=== PATIENT | female | born 2000 | race Two or more races ===

== ENCOUNTER 2022-03-22 15:47 | Outpatient (CLI) | payer OTHER | END 2022-03-22 17:32 | disposition home or self-care (01) | LOC: PRENATAL 15:47 | PROVIDERS: ATTEND Obstetrics & Gynecology Maternal & Fetal Medicine | DX: O35.0XX0 Maternal care for (suspected) central nervous system malformation in fetus, not applicable or unspecified (principal); O35.3XX0 Maternal care for (suspected) damage to fetus from viral disease in mother, not applicable or unspecified; Z3A.24 24 weeks gestation of pregnancy ==

== ENCOUNTER 2022-05-18 13:25 | Outpatient (CLI) | payer OTHER | END 2022-05-18 14:45 | disposition home or self-care (01) | LOC: PRENATAL 13:25 | PROVIDERS: ATTEND Obstetrics & Gynecology Maternal & Fetal Medicine | DX: O26.849 Uterine size-date discrepancy, unspecified trimester (principal); O36.8199 Decreased fetal movements, unspecified trimester, other fetus; Z3A.32 32 weeks gestation of pregnancy ==

== ENCOUNTER 2022-07-31 14:00 | Emergency (ER) | payer OTHER ==
[~2022-07-31] VITALS: Ht 162.6 cm; Wt 69.9 kg
== END 2022-08-01 13:00 | disposition home or self-care (01) ==
LOC: ER 14:00
DX: R10.11 Right upper quadrant pain (principal)

== ENCOUNTER 2023-05-17 15:44 | Outpatient (CLI) | payer OTHER | END 2023-05-17 18:29 | disposition home or self-care (01) | LOC: PRENATAL 15:44 | PROVIDERS: ATTEND Obstetrics & Gynecology Maternal & Fetal Medicine | DX: O35.3XX0 Maternal care for (suspected) damage to fetus from viral disease in mother, not applicable or unspecified (principal); O44.00 Complete placenta previa NOS or without hemorrhage, unspecified trimester; Z3A.20 20 weeks gestation of pregnancy ==

== ENCOUNTER 2023-08-07 13:37 | Outpatient (CLI) | payer OTHER | END 2023-08-07 13:38 | disposition home or self-care (01) | LOC: PRENATAL 13:37 | PROVIDERS: ATTEND Obstetrics & Gynecology Maternal & Fetal Medicine | DX: O26.849 Uterine size-date discrepancy, unspecified trimester (principal); O36.8199 Decreased fetal movements, unspecified trimester, other fetus ==

== ENCOUNTER 2024-09-03 15:26 | Emergency (ER) | payer OTHER ==
[~2024-09-03] VITALS: Ht 162.6 cm; Wt 82.6 kg
[2024-09-03 15:49] VITALS: BP 93/62; O2SAT 98
[2024-09-03] MEDS ORDERED: ONDANSETRON HCL 2 MG/ML VIAL IV STA (16:14)
[2024-09-03] MEDS ORDERED: FAMOTIDINE/PF 20 MG/2 ML VIAL IV STA (16:15)
[2024-09-03] MEDS ORDERED: DEXTROSE 5 %-0.45 % SOD CHLORD 1,000 ML IV SCH (16:15)
[2024-09-03 16:36] LABS: HEMATOCRIT 42.4 % (36.0-45.00); MEAN CELL VOLUME 79.6 fL (80.00-100.00); MEAN CORPUSCULAR HEMOGLOBIN 26.3 pg (27.00-32.0); PLATELET COUNT 294 K/uL (150-450); RED BLOOD COUNT 5.33 M/uL (4.00-6.00)
[2024-09-03 17:07] LABS: ALBUMIN 3.7 gm/dL (3.4-5.0); BILIRUBIN TOTAL 1.04 mg/dL (0.3-1.2); CALCIUM 8.7 mg/dL (8.5-10.1); CREATININE SERUM 0.83 mg/dL (0.55-1.02); GFR 84.46; GLOBULINA 3.7 G/DL (2.4-3.5); POTASSIUM 3.82 mEq/L (3.5-5.1); TOTAL PROTEIN 7.4 gm/dL (6.4-8.2)
[2024-09-03] MEDS ORDERED: PEPCID AC20 MG PO (19:41)
[2024-09-03] MEDS ORDERED: ONDANSETRON ODT8 MG PO (19:41)
[2024-09-03] MEDS ORDERED: PROMETHAZINE HCL 50 MG/ML AMPUL IM ONE (21:15)
== END 2024-09-03 21:34 | disposition home or self-care (01) ==
LOC: ER 15:28
DX: K52.9 Noninfective gastroenteritis and colitis, unspecified (principal); R11.10 Vomiting, unspecified
CPT/HCPCS: 36415; 96365; 96366; 96372; 99282; J2405; J2550; J3490; J7030